=== PATIENT | male | born 1960 | race Hispanic/Latino ===

== ENCOUNTER 2020-04-14 21:29 | Emergency (ER) | payer SELFPAY ==
[2020-04-14] MEDS ORDERED: ALBUTEROL INHALER 60 PUFF/8 GM IH ONE (21:57)
[2020-04-14 22:15] LABS: Absolute Lymphocytes (CBC) 1.8 K/uL (0.7-4.9); Basophils % 0.9 % (0-1.3); Hematocrit 42.4 % (39.6-49.0); Lymphocytes % 21.7 % (15.3-44.8); MPV 8.1 fL (7.6-11.3); RBC Red Blood Cell Count 4.68 M/uL (4.33-5.43)
[2020-04-14 22:28] LABS: Protime INR 0.91
[2020-04-14 22:43] LABS: ALT/SGPT 43 U/L (12-78); AST/SGOT 46 U/L (15-37); Albumin 4.3 g/dL (3.4-5.0); Alkaline Phosphatase 122 U/L (45-117); BUN Blood Urea Nitrogen 19 mg/dL (7-18); Bicarbonate 26 mmol/L (21-32); Bilirubin Direct < 0.1 mg/dL (0-0.2); Bilirubin Total 0.2 mg/dL (0.2-1.0); CKMB Creatine Kinase MB 2.3 ng/mL (0.3-3.6); Creatine Phosphokinase 991 U/L (39-308); Glucose Level 104 mg/dL (74-106); Lipase 205 U/L (73-393); Magnesium 2.6 mg/dL (1.8-2.4); NT PRO-BNP 66 pg/mL (<125); Potassium 4.1 mmol/L (3.5-5.1); Protein, Total 8.3 g/dL (6.4-8.2); Sodium Level 140 mmol/L (136-145); Troponin (Emerg Dept Use Only) < 0.02 ng/mL (0.0-0.045)
--- NOTE | 2020-04-14 22:52 | ER ---
Nurse's Notes [facility] Name: Leonel Tang Age: 59 yrs Sex: Male : 1960 Arrival Date: 04/14/2020 Time: 21:29 Bed 5 Private MD: Diagnosis: Bronchitis, not specified as acute or chronic Presentation: 04/14 21:30 Chief complaint: Patient states: I have been coughing for the past 2 months. I have jb4 been coughing up clear phlegm. Tonight I am not coughing up anything. The cough is just persistent and will not go away and the pain radiates from my chest to my back. Coronavirus screen: Client denies travel out of the [place] in the last 14 days. Client presents with at least one sign or symptom that may indicate coronavirus-19. Standard/surgical mask placed on the client. Provider contacted for isolation considerations. Ebola Screen: Patient negative for fever greater than or equal to 101.5 degrees Fahrenheit, and additional compatible Ebola Virus Disease symptoms No symptoms or risks identified at this time. Initial Sepsis Screen: Does the patient meet any 2 criteria? HR > 90 bpm. Yes Does the patient have a suspected source of infection? No. Patient's initial sepsis screen is negative. Risk Assessment: Do you want to hurt yourself or someone else? Patient reports no desire to harm self or others. Onset of symptoms was April 14, 2020. Transition of care: patient was not received from another setting of care. 21:30 Method Of Arrival: EMS: [facility] jb4 21:30 Acuity: GUSTAVO 2 jb4 Historical: - Allergies: 21:38 pcn; jb4 21:38 Benadryl; jb4 - Home Meds: 21:38 None [Active]; jb4 - PMHx: 21:38 None; jb4 - PSHx: 21:38 None; jb4 - Immunization history:: Adult Immunizations up to date. - Social history:: Smoking status: Patient reports the use of cigarette tobacco products, smokes one-half pack cigarettes per day, Patient uses alcohol, on a daily basis. Patient/guardian denies using street drugs. Screenin:30 Abuse screen: Denies threats or abuse. Nutritional screening: On. Tuberculosis jb4 screening: No symptoms or risk factors identified. Fall Risk None identified. Assessment: 21:30 General: Appears in no apparent distress. uncomfortable, Behavior is calm, cooperative, jb4 appropriate for age. Pain: Complains of pain in chest Pain radiates to back Pain currently is 10 out of 10 on a pain scale. Quality of pain is described as sharp. Neuro: Level of Consciousness is awake, alert, obeys commands, Oriented to person, place, time, situation. Cardiovascular: Patient's skin is warm and dry. Respiratory: Airway is patent Respiratory effort is even, labored, Respiratory pattern is regular, symmetrical, Breath sounds with wheezes bilaterally. the patient has mild shortness of breath. GI: No signs and/or symptoms were reported involving the gastrointestinal system. : No signs and/or symptoms were reported regarding the genitourinary system. EENT: No signs and/or symptoms were reported regarding the EENT system. Derm: Skin is intact, Skin is pink, warm \T\ dry. Musculoskeletal: Circulation, motion, and sensation intact. Range of motion: intact in all extremities. 22:13 Reassessment: Patient appears in no apparent distress at this time. Patient and/or jb4 family updated on plan of care and expected duration. Pain level reassessed. Patient is alert, oriented x 3, equal unlabored respirations, skin warm/dry/pink. Patient states feeling better. Patient states symptoms have improved. Respiratory: Airway is patent Respiratory effort is even, unlabored, relaxed, Respiratory pattern is regular, symmetrical, Breath sounds are clear bilaterally. 23:17 Reassessment: Patient appears in no apparent distress at this time. Patient and/or jb4 family updated on plan of care and expected duration. Pain level reassessed. Patient is alert, oriented x 3, equal unlabored respirations, skin warm/dry/pink. Vital Signs: 21:30 BP 112 / 72; Pulse 112; Resp 18; Temp 98.7(O); Pulse Ox 98% on R/A; Weight 77.11 kg jb4 (R); Height 5 ft. 4 in. (162.56 cm) (R); Pain 10/10; 22:45 BP 136 / 78; Pulse 94; Resp 16; Pulse Ox 98% on R/A; jb4 21:30 Body Mass Index 29.18 (77.11 kg, 162.56 cm) [facility] ED Course: 21:29 Patient arrived in ED. jb4 21:29 Navi Jackson MD is Attending Physician. tw4 21:30 Patient has correct armband on for positive identification. Bed in low position. Call jb4 light in reach. Side rails up X 1. Pulse ox on. NIBP on. 21:35 Ryan Jane RN is Primary Nurse. jb4 21:37 Triage completed. jb4 21:38 Arm band placed on right wrist. jb4 21:55 Inserted saline lock: 18 gauge in right antecubital area, using aseptic technique. jb4 Blood collected. 21:55 Initial lab(s) drawn, by me, sent to lab. First set of blood cultures drawn by me, Flu jb4 and/or RSV swab sent to lab. Strep swab sent to lab. 22:10 XRAY CXR (1 view) In Process Unspecified. EDMS 22:10 Second set of blood cultures drawn by me. EKG done, by ED staff, reviewed by Navi Jackson MD. 23:17 No provider procedures requiring assistance completed. IV discontinued, intact, jb4 bleeding controlled, No redness/swelling at site. Pressure dressing applied. Administered Medications: 21:45 Drug: Albuterol HFA Inhaler 2 puffs Route: Inhalation; jb4 22:15 Follow up: Response: No adverse reaction; Marked relief of symptoms; Wheezing diminishedjb4 Outcome: 22:52 Discharge ordered by . tw4 23:17 Discharged to home ambulatory. jb4 23:17 Condition: stable 23:17 Discharge instructions given to patient, Instructed on discharge instructions, follow up and referral plans. medication usage, Demonstrated understanding of instructions, follow-up care, medications, Prescriptions given X 3. 23:18 Patient left the ED. jb4 Signatures: Dispatcher [employer] EDMS Ryan Jane, RN RN Navi Esteban MD MD tw4 Corrections: (The following items were deleted from the chart) 21:37 21:35 Chief complaint: jb4 jb4
--- NOTE | 2020-04-14 22:52 | EDPHYS ---
Physician Documentation [facility] Name: Leonel Tang Age: 59 yrs Sex: Male : 1960 Arrival Date: 04/14/2020 Time: 21:29 Bed 5 Private MD: ED Physician Navi Jackson HPI: 04/15 06:25 This 59 yrs old Male presents to ER via EMS with complaints of cough. tw4 06:25 The patient has shortness of breath at rest. Onset: The symptoms/episode began/occurred tw4 yesterday. Duration: The symptoms are continuous, and are unchanged since they started. The patient's shortness of breath has no apparent modifying factors. Associated signs and symptoms: The patient has no apparent associated signs or symptoms. The patient has not experienced similar symptoms in the past. Historical: - Allergies: 04/14 21:38 pcn; jb4 21:38 Benadryl; jb4 - Home Meds: 21:38 None [Active]; jb4 - PMHx: 21:38 None; jb4 - PSHx: 21:38 None; jb4 - Immunization history:: Adult Immunizations up to date. - Social history:: Smoking status: Patient reports the use of cigarette tobacco products, smokes one-half pack cigarettes per day, Patient uses alcohol, on a daily basis. Patient/guardian denies using street drugs. ROS: 04/15 06:25 Cardiovascular: Negative for chest pain, palpitations, and edema, Abdomen/GI: Negative tw4 for abdominal pain, nausea, vomiting, diarrhea, and constipation, Back: Negative for injury and pain, MS/Extremity: Negative for injury and deformity, Skin: Negative for injury, rash, and discoloration, Neuro: Negative for headache, weakness, numbness, tingling, and seizure. Respiratory: Positive for cough, "sounds productive", shortness of breath. Exam: 06:25 Constitutional: This is a well developed, well nourished patient who is awake, alert, tw4 and in no acute distress. Head/Face: Normocephalic, atraumatic. Chest/axilla: Normal chest wall appearance and motion. Nontender with no deformity. No lesions are appreciated. Cardiovascular: Regular rate and rhythm with a normal S1 and S2. No gallops, murmurs, or rubs. Normal PMI, no JVD. No pulse deficits. Respiratory: Lungs have equal breath sounds bilaterally, clear to auscultation and percussion. No rales, rhonchi or wheezes noted. No increased work of breathing, no retractions or nasal flaring. Abdomen/GI: Soft, non-tender, with normal bowel sounds. No distension or tympany. No guarding or rebound. No evidence of tenderness throughout. Vital Signs: 04/14 21:30 BP 112 / 72; Pulse 112; Resp 18; Temp 98.7(O); Pulse Ox 98% on R/A; Weight 77.11 kg jb4 (R); Height 5 ft. 4 in. (162.56 cm) (R); Pain 10/10; 22:45 BP 136 / 78; Pulse 94; Resp 16; Pulse Ox 98% on R/A; jb4 21:30 Body Mass Index 29.18 (77.11 kg, 162.56 cm) 4 MDM: 21:29 Patient medically screened. tw4 04/15 06:27 Differential diagnosis: Anemia CHF exacerbation, Chronic Obstructive Pulmonary Disease tw4 Myocardial Infarction pneumonia, pulmonary edema, Pulmonary Embolism reactive airway disease. Antibiotic administration: Not indicated. Data reviewed: vital signs, nurses notes, lab test result(s), CBC, electrolytes, hepatic panel, radiologic studies, plain films. Data interpreted: Pulse oximetry: Interpretation: normal. Test interpretation: by ED physician or midlevel provider: ECG, plain radiologic studies. Counseling: I had a detailed discussion with the patient and/or guardian regarding: the historical points, exam findings, and any diagnostic results supporting the discharge/admit diagnosis, lab results, radiology results. Refusal of service: The patient/guardian displays adequate decision making capability and despite a detailed discussion of alternatives, benefits, risks, and consequences refuses: all lab tests, refused covid test. 04/14 21:36 Order name: Blood Culture Adult (2) tw 04/14 21:36 Order name: BMP; Complete Time: 22:49 tw4 04/14 22:49 Interpretation: Normal except: BUN 19; CRE 1.44; GFR 50. tw4 04/14 21:36 Order name: CBC with Diff; Complete Time: 22:49 tw4 04/14 22:49 Interpretation: Normal except: EOSINOPHIL % 11.4. tw4 11 21:36 Order name: Ckmb; Complete Time: 22:50 04/14 22:50 Interpretation: Within normal limits: CKMB 2.3. 04/14 21:36 Order name: CPK; Complete Time: 22:49 04/14 22:49 Interpretation: Abnormal: CPK 991. 04/14 21:36 Order name: D-Dimer; Complete Time: 22:50 04/14 22:50 Interpretation: D-DIMER 233. 04/14 21:36 Order name: Hepatic Function; Complete Time: 22:50 04/14 22:50 Interpretation: Abnormal: AST 46; ALK 122; TP 8.3; GLOB 4.0. 04/14 21:36 Order name: Lipase; Complete Time: 22:50 04/14 22:50 Interpretation: Within normal limits: LIP 205. 04/14 21:36 Order name: Magnesium; Complete Time: 22:50 04/14 22:50 Interpretation: Abnormal: MG 2.6. 04/14 21:36 Order name: NT PRO-BNP; Complete Time: 22:51 04/14 22:51 Interpretation: Within normal limits: NT PRO-BNP 66. 04/14 21:36 Order name: PT-INR; Complete Time: 22:51 04/14 22:51 Interpretation: Normal except: PT 10.7. 04/14 21:36 Order name: Ptt, Activated; Complete Time: 22:51 04/14 22:51 Interpretation: Within normal limits: PTT 30.0. 04/14 21:36 Order name: Troponin (emerg Dept Use Only); Complete Time: 22:51 04/14 22:51 Interpretation: Within normal limits: TROPED < 0.02. 04/14 21:36 Order name: XRAY CXR (1 view) 04/14 21:36 Order name: EKG; Complete Time: 21:37 04/14 21:36 Order name: Cardiac monitoring; Complete Time: 22:11 04/14 21:36 Order name: EKG - Nurse/Tech; Complete Time: 22:11 04/14 21:36 Order name: IV Saline Lock; Complete Time: 22:01 04/14 21:36 Order name: Labs collected and sent; Complete Time: 22:04/14 21:36 Order name: O2 Per Protocol; Complete Time: 22:04/14 21:36 Order name: O2 Sat Monitoring; Complete Time: 22:04/14 21:36 Order name: Flu; Complete Time: 22:48 04/14 22:48 Interpretation: Within normal limits. 04/14 21:36 Order name: Strep; Complete Time: 22:48 04/14 22:48 Interpretation: Within normal limits. 04/14 21:36 Order name: Document PUI#; Complete Time: 22:04/14 21:36 Order name: Droplet/Contact Precautions; Complete Time: 22:04/14 21:36 Order name: Notify Health Dept [phone]/ ; Complete Time: :04/14 22:42 Order name: Throat Culture EDMS EC:25 Rate is 96 beats/min. Rhythm is regular. QRS [place] is Normal. NE interval is normal. QRS tw4 interval is normal. QT interval is normal. No Q waves. T waves are Flattened in leads V4, V5. No ST changes noted. Clinical impression: NSR w/ Non-specific ST/T Changes. Interpreted by me. Reviewed by me. Administered Medications: 04/14 21:45 Drug: Albuterol HFA Inhaler 2 puffs Route: Inhalation; jb4 22:15 Follow up: Response: No adverse reaction; Marked relief of symptoms; Wheezing diminishedjb4 Disposition: 04/14/20 22:52 Discharged to Home. Impression: Bronchitis, not specified as acute or chronic. - Condition is Stable. - Discharge Instructions: Acute Bronchitis, Adult, Upper Respiratory Infection, Adult. - Prescriptions for Tessalon Perles 100 mg Oral Capsule - take 1 capsule by ORAL route every 8 hours As needed; 15 capsule. Albuterol Sulfate 90 mcg/actuation - inhale 1-2 puff by INHALATION route every 4-6 hours; 1 Inhaler. Guaifenesin AC 10- 100 mg/5 mL Oral Liquid - take 10 milliliter by ORAL route every 4 hours As needed; 240 milliliter. - Medication Reconciliation Form, Thank You Letter, Antibiotic Education, Prescription Opioid Use form. - Follow up: Private Physician; When: Upon discharge from the Emergency Department; Reason: Recheck today's complaints, Continuance of care, Re-evaluation by your physician. - Problem is new. - Symptoms are unchanged. Signatures: Dispatcher [employer] [facility] Ryan Jane RN RN jb4 Navi Jackson MD MD tw4 Corrections: (The following items were deleted from the chart) 22:13 21:37 CORONAVIRUS+MR.LAB.BRZ ordered. [facility] 23:18 22:52 04/14/2020 22:52 Discharged to Home. Impression: Bronchitis, not specified as jb4 acute or chronic. Condition is Stable. Forms are Medication Reconciliation Form, Thank You Letter, Antibiotic Education, Prescription Opioid Use. Follow up: Private Physician; When: Upon discharge from the Emergency Department; Reason: Recheck today's complaints, Continuance of care, Re-evaluation by your physician. Problem is new. Symptoms are unchanged. tw4
--- NOTE | 2020-04-15 09:31 | RAD REPORT ---
EXAM DESCRIPTION: [place] Single View04/14/2020 10:10 pm CLINICAL HISTORY: sob COMPARISON: none FINDINGS: The lungs appear clear of acute infiltrate. The heart is normal size IMPRESSION: No acute abnormalities displayed
[2020-04-19 10:33] VITALS: TEMP 98.7; O2SAT 98
[2020-04-19 10:35] VITALS: BP 136/78
== END 2020-04-14 23:18 | disposition home or self-care (01) ==
LOC: ER 21:29
DX: J40 Bronchitis, not specified as acute or chronic (principal); F17.210 Nicotine dependence, cigarettes, uncomplicated; Z88.0 Allergy status to penicillin; Z88.8 Allergy status to other drugs, medicaments and biological substances
CPT/HCPCS: 36415; 71045; 80048; 80076; 82550; 82553; 83690; 83735; 83880; 84484; 85025; 85379; 85610; 85730; 87040; 87070; 87081; 87804; 93005; 99284